=== PATIENT | male | born 1965 | race Caucasian/White ===

== ENCOUNTER 2018-06-13 05:09 | Emergency (ER) | payer OTHER ==
[~2018-06-13] VITALS: Ht 172.7 cm; Wt 81.6 kg
[2018-06-13 06:11] LABS: ABSOLUTE BASOPHIL COUNT 0 /CUMM (0.0-0.2); ABSOLUTE EOSINOPHIL COUNT 0.1 /CUMM (0.0-0.7); ABSOLUTE GRANULOCYTE CT 4.2 /CUMM (1.4-6.5); ABSOLUTE LYMPH COUNT 2.3 /CUMM (1.2-3.4); ABSOLUTE MONOCYTE COUNT 0.4 /CUMM (0.10-0.60); BASOPHIL % 0.3 % (0.0-2.0); EOSINOPHIL % 0.9 % (0-5); GRANULOCYTE % 59.9 % (42.2-75.2); HEMATOCRIT 42.2 % (42-52); MEAN CORPUSCULAR HGB CONC 33.6 G/DL (33.0-37.0); MEAN PLATELET VOLUME 8.5 FL (7.4-10.4); PLATELET COUNT 183 /CUMM (130-400); RBC DISTRIBUTION WIDTH 13.5 % (11.5-14.5); RED BLOOD CELL CT 4.59 /CUMM (4.70-6.10)
--- NOTE | 2018-06-13 07:08 | ED GENERAL ADULT ---
History of Present Illness General Chief Complaint: Abdominal Pain/Flank Pain Stated Complaint: ABD PAIN, THINKS HX KIDNEY STONES PER PT Source: patient Exam Limitations: no limitations Vital Signs & Intake/Output Vital Signs & Intake/Output Vital Signs Date Time Temp Pulse Resp B/P B/P Pulse O2 O2 Flow FiO2 Mean Ox Delivery Rate 06/13 0906 68 18 118/79 95 06/13 0634 98.2 53 18 110/65 98 Room Air 06/13 0600 Room Air 06/13 0517 98.4 78 18 127/89 96 Room Air Allergies Uncoded Allergies: CONTRAST DYE (02/11/13) Reconcile Medications Amoxicillin 500 MG CAPSULE 1 CAP PO BID UTI Triage Note: PT TO ED C/O ?KIDNEY STONE. PMH OF KIDNEY STONE 10 YRS AGO. PT C/O URINARY URGENCY WITH NOT MUCH OUTPUT. C/O PAIN IN RT GROIN, RT SIDE, RT TESTICLE AND "HALF OF MY PENIS" Triage Nurses Notes Reviewed? yes Onset: Abrupt Duration: hour(s): Timing: recent history HPI: 06/13/18 7:18 AM 52-year-old male presents to the emergency department with a sudden onset of right-sided abdominal pain. He has past medical history of kidney stones. He admits to nausea and vomiting 1 no fever Status post appendectomy No known drug allergies Past History Travel History Traveled to [place] past 21 day No Medical History Any Pertinent Medical History? see below for history Renal: nephrolithiasis Surgical History Surgical History: appendectomy Psychosocial History What is your primary language Gabonese Tobacco Use: Never used ETOH Use: denies use Illicit Drug Use: denies illicit drug use Family History Hx Contributory? No Review of Systems Review of Systems Constitutional: Denies: fever. EENTM: Reports: no symptoms. Respiratory: Denies: short of breath. Cardiovascular: Denies: chest pain. GI: Reports: see HPI. Genitourinary: Reports: see HPI. Musculoskeletal: Reports: back pain. Skin: Reports: no symptoms. Neurological/Psychological: Reports: no symptoms. Hematologic/Endocrine: Reports: no symptoms. Immunologic/Allergic: Reports: no symptoms. Physical Exam Physical Exam General Appearance: well developed/nourished, alert, awake, anxious, mild distress Head: atraumatic, normal appearance Eyes: Bilateral: normal appearance, PERRL, EOMI. Ears, Nose, Throat: normal pharynx, normal ENT inspection, hearing grossly normal Neck: normal inspection, supple Respiratory: normal breath sounds, chest non-tender, no respiratory distress Cardiovascular: regular rate/rhythm Peripheral Pulses: 4+ radial (R), 4+ radial (L) Gastrointestinal: soft, non-tender Back: normal range of motion Extremities: normal inspection Neurologic/Psych: no motor/sensory deficits, awake, alert, oriented x 3, normal gait Skin: intact, normal color, warm/dry Core Measures ACS in differential dx? No CVA/TIA Diagnosis: No Sepsis Present: No Sepsis Focused Exam Completed? No Progress Differential Diagnoses I considered the following diagnoses in my evaluation of the patient: [Renal colic, pyelonephritis, aortic dissection] Plan of Care: Orders Procedure Date/time Status COMPREHENSIVE METABOLIC PANEL 06/13 557 Complete CBC WITHOUT DIFFERENTIAL 06/13 557 Complete URINALYSIS 06/13 521 Complete Laboratory Tests 06/13/18 0845: Urinalysis LIGHT H, Urine Color YEL, Urine Clarity HAZY H, Urine pH 6.0, Ur Specific [place] 1.015, Urine Protein NEG, Urine Ketones NEG, Urine Nitrite NEG, Urine Bilirubin NEG, Urine Urobilinogen 0.2, Ur Leukocyte Esterase NEG, Ur Microscopic SEDIMENT EXAMINED, Urine RBC 50-75 H, Urine WBC 1-3 H, Ur Epithelial Cells RARE, Urine Bacteria FEW H, Urine Mucus MOD H, Urine Hemoglobin MOD H, Urine Glucose NEG 06/13/18 0653: Anion Gap 7, Estimated GFR > 60, BUN/Creatinine Ratio 14.2, Glucose 154 H, Calcium 9.2, Total Bilirubin 0.4, AST 24, ALT 42, Alkaline Phosphatase 61, Total Protein 7.0, Albumin 3.9, Globulin 3.1, Albumin/Globulin Ratio 1.3 06/13/18 0602: CBC w Diff NO MAN DIFF REQ, RBC 4.59 L, MCV 92.0, MCH 31.0, MCHC 33.6, RDW 13.5 , MPV 8.5, Gran % 59.9, Lymphocytes % 32.6, Monocytes % 6.3, Eosinophils % 0.9, Basophils % 0.3, Absolute Granulocytes 4.2, Absolute Lymphocytes 2.3, Absolute Monocytes 0.4, Absolute Eosinophils 0.1, Absolute Basophils 0 Initial ED EKG: none Departure Departure Disposition: HOME OR SELF CARE Condition: Stable Clinical Impression Primary Impression: Renal colic Referrals: Patient Has No Primary Care Dr (PCP/Family) Departure Forms: Customer Survey General Discharge Information Prescriptions: Current Visit Scripts Amoxicillin 1 CAP PO BID #20 CAP Comments PATIENT: MAGDALENO CARMEN PRESENT AGE: 52 PATIENT ACCOUNT NO: [id number] : 67 LOCATION: [facility] ORDERING PHYSICIAN: Diogenes Dumas DO SERVICE DATE: 06/13/18 EXAM TYPE: CAT - CT ABD & PELVIS W/O IV CONTRAS EXAMINATION: CT ABDOMEN AND PELVIS WITHOUT CONTRAST CLINICAL INFORMATION: Right lower quadrant pain. COMPARISON: No priors TECHNIQUE: Multidetector volumetric imaging was performed from the superior aspect of the liver through the pubic symphysis. Sagittal and coronal reformatted images were obtained on the technologist's workstation. DLP: 296 mGy-cm FINDINGS: LUNG BASES: The visualized lung bases are unremarkable. A small pericardial effusion is present. LIVER, GALLBLADDER, AND BILIARY TREE: The liver is normal in size, shape, and attenuation. No focal hepatic lesion or biliary ductal dilatation is present. The gallbladder is unremarkable with no evidence of radiopaque gallstones, gallbladder wall thickening, or obvious pericholecystic inflammatory changes. PANCREAS: Unremarkable. SPLEEN: Unremarkable. ADRENAL GLANDS: Unremarkable. 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 Multiple nonobstructing renal calculi are present in the left kidney ranging in size from 1 to 4 mm at the cortical medullary junction or within the left renal cortex. The left renal collecting system and visualized portions of the ureters is within normal limits. A 1 mm calculus is present in the right lower pole renal collecting system, the central renal collecting system is normal in caliber as is the visualized portions of the right ureter. Both left and right ureterovesical junctions are normal in appearance. No perinephric stranding. BLADDER: A 2 mm calculus is present within the dependent portion of the bladder. GASTROINTESTINAL TRACT: The small and large bowel are unremarkable. A few scattered diverticuli are present without evidence of diverticulitis at this time. No inflammatory changes are present throughout the mesenteric fat. No free intraperitoneal gas or fluid collections are noted. The appendix is not visualized. ABDOMINAL WALL: No significant hernia is appreciated. LYMPH NODES: Multiple retroperitoneal and mesenteric lymph nodes are present which are subcentimeter in size. VASCULAR: Unremarkable. PELVIC VISCERA: Unremarkable. OSSEOUS STRUCTURES: Unremarkable. IMPRESSION: 1. Multiple nonobstructing renal calculi are present bilaterally, however there is no evidence of hydronephrosis or hydroureter. No perinephric inflammatory changes are present. A 2 mm calculus is present in the dependent portion of the bladder, which could represent a recently passed calculus. 2. The appendix is not directly visualized, however no periappendiceal inflammatory changes are present. 3. 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 DICTATED BY: Hillary Gomez MD DATE/TIME DICTATED:06/13/18745 MANAGER LSW:KONRAD DATE/TIME TRANSCRIBED:06/13/18745 CONFIDENTIAL, DO NOT COPY WITHOUT APPROPRIATE AUTHORIZATION. <Electronically signed in Other Vendor System> SIGNED BY: Hillary Gomez MD [id number] Critical Care Note Critical Care Note Critical Care Time: non-applicable
--- NOTE | 2018-06-13 08:07 | CT SCAN REPORT ---
EXAMINATION: CT ABDOMEN AND PELVIS WITHOUT CONTRAST CLINICAL INFORMATION: Right lower quadrant pain. COMPARISON: No priors TECHNIQUE: Multidetector volumetric imaging was performed from the superior aspect of the liver through the pubic symphysis. Sagittal and coronal reformatted images were obtained on the technologist's workstation. DLP: 296 mGy-cm FINDINGS: LUNG BASES: The visualized lung bases are unremarkable. A small pericardial effusion is present. LIVER, GALLBLADDER, AND BILIARY TREE: The liver is normal in size, shape, and attenuation. No focal hepatic lesion or biliary ductal dilatation is present. The gallbladder is unremarkable with no evidence of radiopaque gallstones, gallbladder wall thickening, or obvious pericholecystic inflammatory changes. PANCREAS: Unremarkable. SPLEEN: Unremarkable. ADRENAL GLANDS: Unremarkable. 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 Multiple nonobstructing renal calculi are present in the left kidney ranging in size from 1 to 4 mm at the cortical medullary junction or within the left renal cortex. The left renal collecting system and visualized portions of the ureters is within normal limits. A 1 mm calculus is present in the right lower pole renal collecting system, the central renal collecting system is normal in caliber as is the visualized portions of the right ureter. Both left and right ureterovesical junctions are normal in appearance. No perinephric stranding. BLADDER: A 2 mm calculus is present within the dependent portion of the bladder. GASTROINTESTINAL TRACT: The small and large bowel are unremarkable. A few scattered diverticuli are present without evidence of diverticulitis at this time. No inflammatory changes are present throughout the mesenteric fat. No free intraperitoneal gas or fluid collections are noted. The appendix is not visualized. ABDOMINAL WALL: No significant hernia is appreciated. LYMPH NODES: Multiple retroperitoneal and mesenteric lymph nodes are present which are subcentimeter in size. VASCULAR: Unremarkable. PELVIC VISCERA: Unremarkable. OSSEOUS STRUCTURES: Unremarkable. IMPRESSION: 1. Multiple nonobstructing renal calculi are present bilaterally, however there is no evidence of hydronephrosis or hydroureter. No perinephric inflammatory changes are present. A 2 mm calculus is present in the dependent portion of the bladder, which could represent a recently passed calculus. 2. The appendix is not directly visualized, however no periappendiceal inflammatory changes are present. 3. 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
[2018-06-13 09:06] VITALS: BP 118/79
[2018-06-13] MEDS ORDERED: AMOXICILLIN500 M2 PO (09:46)
== END 2018-06-13 10:02 ==
LOC: ERH 05:09
PROVIDERS: Emergency Medicine
DX: N23 Unspecified renal colic (principal); R11.2 Nausea with vomiting, unspecified; R10.9 Unspecified abdominal pain
CPT/HCPCS: 74176; 81001; 96361; 96374; 96375; 99291; J1885; J2405